=== PATIENT | female | born 1970 | race Caucasian/White ===

== ENCOUNTER 2016-09-01 07:13 | Inpatient (IN) | payer OTHER ==
[2016-08-29 09:20] VITALS: BMI 30.7
[2016-08-29 10:03] VITALS: BP_SYST 122; RESP 20; TEMP 97.8
[2016-09-01] VITALS (20 sets, daily range): BP systolic 93–115; RESP 10–26; TEMP 97.1–97.7; Ht 157.5 cm; Wt 76.2 kg
[~2016-09-01] VITALS: Ht 157.5 cm; Wt 76.2 kg
[2016-09-01] MEDS ORDERED: CLINDAMYCIN 900 MG in DEXTROSE 5% 50 ML IV ONE (07:20)
[2016-09-01] MEDS ORDERED: LACT RINGERS 1,000 ML IV SCH (07:35)
[2016-09-01] MEDS ORDERED: MIDAZOLAM 2 MG/2 ML INJ IV ONE (07:35)
[2016-09-01] MEDS ORDERED: LIDOCAINE 1% BUFFERED 1 ML SYR INTRADERM PRN (07:35)
[2016-09-01] MEDS ORDERED: OXYCODONE 5 MG TAB PO PRN (09:40)
[2016-09-01] MEDS ORDERED: MORPHINE 2 MG/ML SYR IV PRN ×2 (09:40→11:25)
[2016-09-01] MEDS ORDERED: DILAUDID 1 MG/ML AMP IV PRN (09:40)
[2016-09-01] MEDS ORDERED: MORPHINE 4 MG/ML SYR IV PRN (09:40)
[2016-09-01] MEDS ORDERED: ONDANSETRON 4 MG VIAL IV PRN ×2 (09:40→11:25)
[2016-09-01] MEDS ORDERED: MEPERIDINE 25 MG/ML IV PRN (09:40)
[2016-09-01] MEDS ORDERED: OXYCODONE/APAP 5/325 TAB PO PRN (11:25)
[2016-09-01] MEDS ORDERED: CHLORASEPTIC 180 ML BTL PO PRN (11:25)
[2016-09-01] MEDS ORDERED: SODIUM CHLORIDE 0.9% 1,000 ML IV SCH (11:25)
[2016-09-01] MEDS ORDERED: TRAZODONE 100 MG TAB PO SCH ×2 (13:20→21:00)
[2016-09-01] MEDS ORDERED: BUPIVACA/EPI 0.5% 50ML NERVEBLOCK ONE (14:00)
[2016-09-01] MEDS ORDERED: THROMBIN 5000 UNIT KIT TOPICAL ONE (14:00)
[2016-09-01] MEDS ORDERED: BACITRACIN 50,000 UNITS INJ IRRIG ONE (14:00)
[2016-09-01] MEDS ORDERED: GELATIN SPONGE 12 CM2 TOPICAL ONE (14:00)
[2016-09-01] MEDS ORDERED: DILAUDID 1 MG/ML AMP IV ONE (14:14)
[2016-09-01] MEDS ORDERED: FENTANYL 100 MCG/2 ML AMP IV ONE (14:14)
[2016-09-01] MEDS ORDERED: KETAMINE INJ 50 MG/ML VIAL IV ONE (14:14)
[2016-09-01] MEDS ORDERED: DEXAMETHASONE 4 MG/ML VIAL IV ONE (14:14)
[2016-09-01] MEDS ORDERED: PROPOFOL 20 ML PER ML IV ONE (14:14)
[2016-09-01] MEDS ORDERED: ONDANSETRON 4 MG VIAL IV PUSH ONE (14:14)
[2016-09-01] MEDS ORDERED: GLYCOPYRROLATE 0.2 MG/ML VIAL IV ONE (14:14)
[2016-09-01] MEDS ORDERED: ROCURONIUM 50 MG VIAL IV ONE (14:14)
[2016-09-01] MEDS ORDERED: NEOSTIGMINE 10 MG/10 ML VIAL IV ONE (14:14)
[2016-09-01] MEDS ORDERED: LIDOCAINE 2% SYR 5 ML IV ONE (14:14)
[2016-09-01] MEDS: MORPHINE 4 MG/ML SYR IV PRN ×2 (14:37→19:34)
[2016-09-01] MEDS: CLINDAMYCIN 900 MG in DEXTROSE 5% 50 ML IV SCH ×2 (14:38→21:15)
[2016-09-01] MEDS: TIZANIDINE 4 MG TAB PO SCH ×2 (16:31→21:11)
[2016-09-01] MEDS: BUSPIRONE HCL 10 MG TAB PO SCH ×2 (16:31→21:12)
[2016-09-01] MEDS: OXYCODONE/APAP 5/325 TAB PO PRN (18:38)
[2016-09-01] MEDS ORDERED: DULoxetine 20 MG CAP PO SCH (21:00)
[2016-09-01] MEDS ORDERED: AMITRIPTYLINE 75 MG TAB PO SCH (21:00)
[2016-09-01] MEDS ORDERED: [UNRECOGNIZED DRUG - OTHER] PO SCH (21:00)
[2016-09-01] MEDS: LEVETIRACETAM 500 MG TAB PO SCH (21:12)
[2016-09-01] MEDS: DOCUSATE SOD 100 MG CAP PO SCH (21:13)
[2016-09-02] MEDS: CLINDAMYCIN 900 MG in DEXTROSE 5% 50 ML IV SCH ×2 (03:37→09:14)
[2016-09-02 05:10] VITALS: BP_SYST 94; RESP 16; TEMP 97.8
[2016-09-02 07:20] VITALS: BP_SYST 89; RESP 16; TEMP 98
[2016-09-02] MEDS: DOCUSATE SOD 100 MG CAP PO SCH (09:14)
[2016-09-02] MEDS: BUSPIRONE HCL 10 MG TAB PO SCH ×2 (09:15→15:03)
[2016-09-02] MEDS: TIZANIDINE 4 MG TAB PO SCH ×2 (09:15→15:03)
[2016-09-02] MEDS: LEVETIRACETAM 500 MG TAB PO SCH (09:15)
[2016-09-02] MEDS: OXYCODONE/APAP 5/325 TAB PO PRN ×2 (09:19→15:01)
[2016-09-02 10:50] VITALS: BP_SYST 93; RESP 16
[2016-09-02 15:10] VITALS: BP_SYST 93; RESP 16; TEMP 98
== END 2016-09-02 16:29 | disposition home or self-care (01) | DRG 473 ==
LOC: ENRESERVDT → ENRESERVTM → SDS 07:13 → ENPENDDIS 07:13 → 5THW 12:54
PROVIDERS: ADMIT Neurological Surgery; ATTEND Neurological Surgery
PROC: 0RB30ZZ Excision of Cervical Vertebral Disc, Open Approach (ICD-10-PCS; 2016-09-01)
PROC: 0RG10K0 Fusion of Cervical Vertebral Joint with Nonautologous Tissue Substitute, Anterior Approach, Anterior Column, Open Approach (ICD-10-PCS; principal; 2016-09-01 09:38)
DX: M50.122 Cervical disc disorder at C5-C6 level with radiculopathy (principal); R20.2 Paresthesia of skin
CPT/HCPCS: 76000; 94799